=== PATIENT | female | born 2000 | race Caucasian/White ===

== ENCOUNTER → 2023-04-06 | Outpatient (CLI) | payer OTHER, SELFPAY ==
[2023-04-09 09:09] LABS: Chlamydia By Nucleic Acid AMP Negative (Negative); Gonococcus By Nucleic Acid AMP Negative (Negative)
[2023-04-12 21:50] LABS: HPV Reflexed? NOT INDICATED
== END | disposition home or self-care (01) ==
PROVIDERS: PCP Pediatrics; Referring Provider Obstetrics & Gynecology; Visit Provider Obstetrics & Gynecology
DX: Z34.90 Encounter for supervision of normal pregnancy, unspecified, unspecified trimester (principal)
CPT/HCPCS: 87086; 87088; 87491; 87591; 88175; G0145

== ENCOUNTER → 2023-05-04 | Outpatient (CLI) | payer OTHER, SELFPAY ==
[2023-05-04 13:44] LABS: Absolute Lymphocyte Count 1.09 X10^3/uL (0.83-4.51); Absolute Neutrophil Count 8.7 X10^3/uL (2.0-7.7); Basophil# 0.03 X10^3/uL; Basophil% 0.3 % (0-1); Eosinophil# 0.09 X10^3/uL; Eosinophils% 0.9 % (0-5); Hematocrit 38.2 % (37-47); Hemoglobin 12.5 g/dL (12.0-15.0); Lymphocyte # 1.09 X10^3/ul (0.83-4.51); Lymphocyte % 10.4 % (19-41); Mean Corp Hgb Conc 32.7 g/dL (32-36); Mean Corpuscular Hgb 28.6 pg (27.0-32.0); Mean Corpuscular Volume 87.4 fL (81-99); Mean Platelet Vol. 9.6 fl (6.2-12.0); Monocyte# 0.51 X10^3/uL; Monocyte% 4.9 % (0-10); NRBC Flagged by Analyzer 0 % (0-5); Neutrophil # 8.72 X10^3/uL (2.7-7.7); Neutrophil % 83.2 % (47-70); Platelet Count 332 K/mm3 (150-450); RBC Distribution Width CV 13.7 % (11.6-14.6); RBC Distribution Width SD 44.1 fl (35.1-43.9); Red Blood Count 4.37 M/mm3 (4.2-5.4); White Blood Count 10.5 K/mm3 (4.4-11.0)
[2023-05-04 14:05] LABS: Glucose Challenge Gest 1H 50g 83 mg/dL (70-140)
[2023-05-04 14:51] LABS: HIV - WCH Non-Reactive (Nonreactive); Hepatitis B Surface Antigen Non-Reactive (Nonreactive); Hepatitis C Antibody Non-Reactive (Nonreactive); Rubella IgG Non-Reactive (Nonreactive); Syphilis Antibodies Non-reactive
[2023-05-06 06:09] LABS: V-Zoster IgG (Immunity) < 135 index (Immune >165)
== END | disposition home or self-care (01) ==
LOC: LAB 12:38
PROVIDERS: PCP Pediatrics; Referring Provider Obstetrics & Gynecology; Visit Provider Obstetrics & Gynecology
DX: Z34.90 Encounter for supervision of normal pregnancy, unspecified, unspecified trimester (principal)
CPT/HCPCS: 36415; 82950; 85025; 86703; 86762; 86780; 86787; 86803; 86850; 86900; 86901; 87340

== ENCOUNTER → 2023-07-31 | Outpatient (CLI) | payer OTHER, SELFPAY ==
[2023-07-31 12:17] LABS: Absolute Lymphocyte Count 1.36 X10^3/uL (0.83-4.51); Basophil# 0.04 X10^3/uL; Basophil% 0.4 % (0-1); Eosinophil# 0.12 X10^3/uL; Eosinophils% 1.1 % (0-5); Hematocrit 35.3 % (37-47); Hemoglobin 11.6 g/dL (12.0-15.0); Lymphocyte # 1.36 X10^3/ul (0.83-4.51); Lymphocyte % 12.1 % (19-41); Mean Corp Hgb Conc 32.9 g/dL (32-36); Mean Corpuscular Hgb 29.1 pg (27.0-32.0); Mean Corpuscular Volume 88.5 fL (81-99); Mean Platelet Vol. 9.7 fl (6.2-12.0); Monocyte% 6.2 % (0-10); NRBC Flagged by Analyzer 0 % (0-5); Neutrophil # 8.96 X10^3/uL (2.7-7.7); Neutrophil % 79.7 % (47-70); Platelet Count 358 K/mm3 (150-450); RBC Distribution Width CV 13.7 % (11.6-14.6); RBC Distribution Width SD 44.1 fl (35.1-43.9); Red Blood Count 3.99 M/mm3 (4.2-5.4); White Blood Count 11.2 K/mm3 (4.4-11.0)
[2023-07-31 13:00] LABS: Glucose Challenge Gest 1H 50g 94 mg/dL (70-140)
[2023-07-31 19:40] LABS: Xtra Tube EP Lab EXTRA TUBE
[2023-07-31 19:42] LABS: Xtra Tube EP Lab EXTRA TUBE
== END | disposition home or self-care (01) ==
LOC: LAB 11:30
PROVIDERS: Referring Provider Registered Nurse; Visit Provider Registered Nurse
DX: O99.212 Obesity complicating pregnancy, second trimester (principal); Z13.1 Encounter for screening for diabetes mellitus; Z3A.22 22 weeks gestation of pregnancy
CPT/HCPCS: 36415; 82950; 85025

== ENCOUNTER → 2023-10-07 | Outpatient (CLI) | payer OTHER, SELFPAY ==
--- NOTE | 2023-10-07 13:47 | US_ITS ---
EXAM: US SECOND OR THIRD TRIMESTER , TRANSABDOMINAL CLINICAL INDICATION: growth TECHNIQUE: Transabdominal obstetrical ultrasound of the maternal pelvis and a second or third trimester with image documentation. COMPARISON: No relevant prior studies available. FINDINGS: FETUS: HEART RATE: 138 bpm PRESENTATION: Cephalic. PLACENTA: Grade 1, posterior. A No placenta previa. No abruption. AMNIOTIC FLUID: Unremarkable. 4 quadrant CLARICE 11.4 cm, the largest pocket 3.4 cm. ANATOMY: Full survey not performed. BIOMETRICS GESTATIONAL AGE: 34 weeks 5 days. HE: November 13, 2023. EFW: 2610 g +/- 391 g, 41st percentile. BPD: 8.5 cm, 34 weeks 2 days. HC: 31.1 cm, 34 weeks 5 days. AC: 31.1 cm, 35 weeks 0 days. FL: 6.9 cm, 35 weeks 4 days. MATERNAL: UTERUS: Unremarkable. No myometrial mass. CERVIX: Not seen. ADNEXA: Not seen. FREE FLUID: None. US/OB Limited With Biometrics IMPRESSION: Single live intrauterine . No acute abnormality. Electronically Signed: Linda Ward MD at 8:02 EDT ,
== END | disposition home or self-care (01) ==
LOC: US 13:46
PROVIDERS: Referring Provider Advanced Practice Midwife; Visit Provider Advanced Practice Midwife
DX: Z34.90 Encounter for supervision of normal pregnancy, unspecified, unspecified trimester (principal)
CPT/HCPCS: 76816

== ENCOUNTER → 2023-10-15 | Outpatient (CLI) | payer OTHER, SELFPAY | END | disposition home or self-care (01) | LOC: LABSPEC 15:29 | PROVIDERS: Referring Provider Registered Nurse; Visit Provider Registered Nurse | DX: Z34.00 Encounter for supervision of normal first pregnancy, unspecified trimester (principal) | CPT/HCPCS: 87077; 87081; 87186 ==

== ENCOUNTER 2023-11-16 04:10 | Inpatient (IN) | payer OTHER, SELFPAY ==
[2023-11-15 20:16] VITALS: RESP 16; TEMP 36.6
[2023-11-15 20:18] VITALS: BP 124/79; PULSE 80; O2SAT 98
[2023-11-15 20:24] VITALS: BMI 38.6
[2023-11-15] MEDS: DiphenhydrAMINE 25 MG Capsule 50 MG PO (22:58)
[2023-11-16] VITALS (44 sets, daily range): BP systolic 97–153; BP diastolic 53–92; PULSE 64–113; RESP 14–16; TEMP 35.8–37.9; O2SAT 89
[2023-11-16] MEDS: Lactated Ringers 1,000 ML 100 ML IV ×3 (00:31→09:14)
[2023-11-16] MEDS: Ondansetron 4 MG/2 ML Vial IV (00:31)
[2023-11-16] MEDS: Morphine 4 MG/ML Syringe 5 MG IV (01:06)
[2023-11-16 04:19] LABS: Absolute Neutrophil Count 11.7 X10^3/uL (2.0-7.7); Basophil# 0.03 X10^3/uL; Basophil% 0.2 % (0-1); Eosinophil# 0.02 X10^3/uL; Eosinophils% 0.1 % (0-5); Hematocrit 34.1 % (37-47); Lymphocyte % 8.8 % (19-41); Mean Corp Hgb Conc 32.3 g/dL (32-36); Mean Corpuscular Hgb 27.4 pg (27.0-32.0); Mean Corpuscular Volume 84.8 fL (81-99); Mean Platelet Vol. 10.3 fl (6.2-12.0); Monocyte# 0.67 X10^3/uL; Monocyte% 4.9 % (0-10); NRBC Flagged by Analyzer 0 % (0-5); Neutrophil # 11.71 X10^3/uL (2.7-7.7); Neutrophil % 85.6 % (47-70); Platelet Count 311 K/mm3 (150-450); RBC Distribution Width SD 42.8 fl (35.1-43.9); Red Blood Count 4.02 M/mm3 (4.2-5.4); White Blood Count 13.7 K/mm3 (4.4-11.0)
[2023-11-16 04:50] LABS: Syphilis Antibodies Non-reactive
[2023-11-16] MEDS: LACTATED RINGERS 500 ML 999 ML IV (09:21)
--- NOTE | 2023-11-16 09:43 | PN.OBGYN_ITS ---
Subjective Subjective coping through contractions, feeling extremely tired. Objective Data Objective Data Vital Signs: Vital Signs Temp Pulse Resp BP Pulse Ox 97.6 F L 72 16 121/74 H 89 11/16/23 09:28 11/16/23 09:38 11/16/23 09:28 11/16/23 09:38 11/16/23 09:33 Weight: 232 lb 3.2 oz Body Mass Index (BMI) 38.6 Intake & Output: Intake and Output for Last 24 Hours 11/14/23 11/15/23 11/16/23 23:59 23:59 23:59 Intake Total 871.67 / 871.67 Balance 871.67 / 871.67 Lab / Micro Data 11/16/23 00:25 Labs: Laboratory Results - last 24 hr 11/16/23 00:25: WBC 13.7 H, RBC 4.02 L, Hgb 11.0 L, Hct 34.1 L, MCV 84.8, MCH 27.4, MCHC 32.3, RDW Std Deviation 42.8, RDW Coeff of Mikayla 14.0, Plt Count 311, MPV 10.3, Immature Gran % (Auto) 0.400, Neut % (Auto) 85.6 H, Lymph % (Auto) 8.8 L, Harding % (Auto) 4.9, Eos % (Auto) 0.1, Baso % (Auto) 0.2, Absolute Neuts (auto) 11.7 H, Absolute Lymphs (auto) 1.20, Nucleated RBC % 0, Syphilis Total Ab Non- reactive, Blood Type A POSITIVE, Antibody Screen NEGATIVE Physical Exam Const alert and oriented x3 GI normal to inspection, nondistended, normoactive bowel sounds Manual OB Exam: estimated gestational size, presentation cephalic, dilated 4, effaced 90, station +1 and other membranes intact. Psych mental status grossly normal NST FHR Rate Baby A Baseline: 130 Variability:: Moderate Accelerations:: 15 x 15 Decelerations:: None NST Reactive:: Yes FHR Category:: Category I Assessment & Plan (1) Positive GBS test: COMMENT: recommend treating in labor. r/b reviewed, pt plans to decline. PLAN: afebrile, membranes intact. continued conversations of r/b/a of antibiotics. declines at this time. understands highly recommended if febrile, tachycardia or prolonged ROM >18 hours. (2) Active labor at term: PLAN: Plan -therapeutic epidural for prodromal labor, now in active labor. -recheck cervical exam within 4 hours of epidural, pitocin if no change vs AROM. -reassuring maternal and status.
[2023-11-16] MEDS: fentaNYL-bupivacaine (epidural) 100 ML BAG EPIDURAL ×2 (10:14→13:46)
[2023-11-16] MEDS: Oxytocin 15 Units/NS 250ml 15 UNITS/250 ML IV.SOLN 2 UNITS IV (10:15)
--- NOTE | 2023-11-16 13:01 | PCM.PN.OB ---
Subjective Subjective comfortable with epidural Objective Data Objective Data Vital Signs: Vital Signs Temp Pulse Resp BP Pulse Ox 97.9 F 71 16 106/63 89 11/16/23 12:27 11/16/23 12:50 11/16/23 12:34 11/16/23 12:50 11/16/23 09:33 Weight: 232 lb 3.2 oz Body Mass Index (BMI) 38.6 Intake & Output: Intake and Output for Last 24 Hours 11/14/23 11/15/23 11/16/23 23:59 23:59 23:59 Intake Total 874.84 / 874.84 Balance 874.84 / 874.84 Lab / Micro Data 11/16/23 00:25 Labs: Laboratory Results - last 24 hr 11/16/23 00:25: WBC 13.7 H, RBC 4.02 L, Hgb 11.0 L, Hct 34.1 L, MCV 84.8, MCH 27.4, MCHC 32.3, RDW Std Deviation 42.8, RDW Coeff of Mikayla 14.0, Plt Count 311, MPV 10.3, Immature Gran % (Auto) 0.400, Neut % (Auto) 85.6 H, Lymph % (Auto) 8.8 L, [place] % (Auto) 4.9, Eos % (Auto) 0.1, Baso % (Auto) 0.2, Absolute Neuts (auto) 11.7 H, Absolute Lymphs (auto) 1.20, Nucleated RBC % 0, Syphilis Total Ab Non-reactive, Blood Type A POSITIVE, Antibody Screen NEGATIVE Physical Exam Resp normal respiratory effort and normal air movement Manual OB Exam: dilated 5.5, effaced 100 and station +1 NST FHR Rate Baby A Baseline: 120 Variability:: Moderate Accelerations:: 15 x 15 Decelerations:: None NST Reactive:: Yes FHR Category:: Category I Uterine Activity:: q3-4 Assessment & Plan (1) Active labor at term: COMMENT: epidural in place. AROM clear fluid (2) Positive GBS test: COMMENT: recommend treating in labor. r/b reviewed, pt plans to decline. PLAN: Plan IUPC placed. pitocin per protocol. comfortable with epidural continue frequent position changes.
--- NOTE | 2023-11-16 18:33 | EX.PCM.OBRPT ---
Assessment & Plan (1) Active labor at term: COMMENT: epidural in place. AROM clear fluid (2) Positive GBS test: COMMENT: recommend treating in labor. r/b reviewed, pt plans to decline. (3) Obesity affecting : COMMENT: 1 TM GCT ordered. healthy weight gain recommended. 41% 11.4afi (4) Susceptible to varicella (non-immune), currently : (5) Supervision of normal first : COMMENT: , HE 11/08/23, [place] (6) : QUALIFIERS: Weeks of gestation: 40 weeks Qualified Code(s): Z3A.40 - 40 weeks gestation of COMMENT: discussed genetic & carrier testing - declined. nl anatomy Maternal Data Information HE Calculator Estimated Delivery Date Method Current WG Current Estimate 11/08/23 LMP (Certain) 41w 1d Vaginal Delivery Operative Information Date of Procedure: 11/16/23 Pre-Operative Diagnosis: see a/p diagnoses Post-Operative Diagnosis: same Surgery / Procedure Performed: Spontaneous Vaginal Delivery Type of Anesthesia: Epidural Special Medications: none Estimated Blood Loss: 200 Fluids Replaced: crystalloid Findings Description of Procedure: Patient began pushing and delivered the head in the SKYE presentation. The head was delivered atraumatically . The anterior and posterior shoulders delivered without complication followed by the rest of the infant and the was placed on the maternal abdomen. Delayed cord clamping was employed for approximately 60 seconds. Cord was clamped and cut and gentle traction was applied to the cord and the placenta delivered spontaneously immediately following it was noted to be intact but missing some mebranes possibly, and with three-vessel cord. manual exploration was performed and some membranes were removed, no additional placenta pieces removed. sufficient evaluation performed and no additional evaluation or curretage needed. ancef x 1 will be given. The perineum and vagina were inspected and noted to have a second degree perineal laceration which was repaired in the usual fashion with 3-0 vicryl rapide after betadine prepping. EBL was 200 cc. Patient and infant tolerated delivery well. Amniotic Fluid Description: Clear (initially then terminal mec) and Thick meconium Placental Delivery Description: Spontaneous Placenta Disposition: [facility] Cord Vessel Description: 3 Vessels Cord Entanglement: None Delayed Cord Clamping: Yes Post Vaginal Delivery Medications Given After Delivery: IV Pitocin Episiotomy Description: None Complication Complications: None Procedures Urinary/Genital [id number]: [id number] Vaginal Delivery [facility] pkg
--- NOTE | 2023-11-16 18:36 | DCINST_ITS ---
Discharge Instructions Diet Discharge Diet: No restrictions Activity Discharge Activity: Return to Normal Activity, May Not Drive (while taking narcotic pain medications.) and May Shower May resume sexual activity in: 4-6 weeks Dressing / Incision Call your doctor if your incision/area has: Continuous Slow Oozing, Sudden Increased Bleeding, Increased Pain/ Swelling, Increased Redness and Foul Smelling Discharge Follow Up Care Please Follow Up With: Daylin Wynn MD When: Call [phone] to make an appointment with your doctor in 6 weeks. If you had elevated blood pressure or 4th degree laceration, you will need to be seen in 2 weeks. Test Results: Test results from this visit will be discussed in further detail at your follow- up appointment, if applicable. Discharge Plan Admission Admit Date/Time: 11/16/23 04:10 Attending Provider: Daylin Wynn Primary Care Provider: Care Physician,Juana Primary Discharge Orders/Prescriptions Prescriptions: No Action PNV-DHA 27 mg iron-1 mg -300 mg capsule PO 1XD Referrals / Follow Up: Care Physician,No Primary [Primary Care Provider] - Disposition Disposition (needs filled in before D/C Order can be placed): Home, Self Care
[2023-11-16] MEDS: Cefazolin 2 GM in 0.9% Normal Saline (100mL Bag) 100 ML IV (19:02)
[2023-11-16] MEDS: 0.9% Saline Lock 10 ML Syringe IV (20:47)
[2023-11-17] VITALS (11 sets, daily range): BP systolic 111–141; BP diastolic 59–80; PULSE 73–140; RESP 16–18; TEMP 36.2–37.6; O2SAT 97–99
[2023-11-17] MEDS: Acetaminophen 500 MG Tablet 1000 MG PO ×4 (00:05→21:27)
[2023-11-17] MEDS: Naproxen 500 MG Tablet PO ×3 (01:27→18:58)
[2023-11-17] MEDS: Senna/Docusate Sodium 1 Tablet PO ×2 (01:41→21:27)
--- NOTE | 2023-11-17 09:44 | PCM.PN.OB ---
Subjective Subjective Patient doing well without complaints. Tolerating PO. Ambulating and voiding without difficulty. Feeding well. Denies chest pain, shortness of breath, calf pain/swelling, fevers, chills, lightheadedness. Objective Data Objective Data Vital Signs: Vital Signs Temp Pulse Resp BP Pulse Ox O2 Del Method 98.7 F 140 H 16 113/59 L 97 Room Air 11/17/23 09:01 11/17/23 09:01 11/17/23 08:46 11/17/23 08:46 11/17/23 05:27 11/17/23 05:27 Oxygen Delivery Method Room Air Weight: 232 lb 3.2 oz Body Mass Index (BMI) 38.6 Intake & Output: Intake and Output for Last 24 Hours 11/15/23 11/16/23 11/17/23 23:59 23:59 23:59 Intake Total 3731.67 / 3731.67 Output Total 200 / 200 400 / 400 Balance 3531.67 / 3531.67 -400 / -400 Lab / Micro Data 11/16/23 00:25 Physical Exam Const alert and oriented x3 HEENT normocephalic Eyes PERRL Neck full ROM Resp normal respiratory effort GI soft to palpation GI Narrative: FF below U Assessment & Plan (1) Spontaneous vaginal delivery: COMMENT: 11/16/23 [facility] [place] (2) Susceptible to varicella (non-immune), currently : COMMENT: enc to vaccinate after delivery PLAN: Plan s/p PPD # 1 1. routine post delivery care 2. breast feeding- support given 3. rh positive 4. rubella immune
[2023-11-18 02:51] VITALS: BP 126/70; PULSE 75
[2023-11-18 02:58] VITALS: BP 126/70; PULSE 75; RESP 16; TEMP 36.7
[2023-11-18 07:50] VITALS: BP 111/79; PULSE 66
[2023-11-18 07:51] VITALS: BP 111/79; PULSE 66; RESP 16; TEMP 36.2
[2023-11-18] MEDS: Acetaminophen 500 MG Tablet 1000 MG PO (07:58)
[2023-11-18] MEDS: Senna/Docusate Sodium 1 Tablet PO (09:42)
--- NOTE | 2023-12-04 09:33 | PCM.HP.OB ---
HPI - General General Date of Admission: 11/16/23 Date of Service: 11/16/23 Chief Complaint: contractions HPI Narrative JADIEL NAVA, is a 23 F who presents with increased contraction intensity and frequency since thursday morning. denies LOF/VB good fm. PFSH PFSH Medical History Anesthesia complication Fracture of proximal phalanx of digit of right hand Home Medications multivitamin no.47-iron fum 27 mg-folate no.1 1 mg-dha 300 mg capsule (PNV-DHA) cap PO 1XD 03/31/23 [History Last Taken 11/14/23] Allergy/AdvReac Type Severity Reaction Status Date / Time No Known Allergies Allergy Verified 11/16/23 04:18 Surgical History [place] teeth extracted Social History adopted: No household members: spouse current occupational status: unemployed current occupational exposures/hazards: No pets and animals: Yes pets and animals: dog(s) [facility] [place] [facility] out of state: Yes out of country: Yes sexually active: Yes Smoking Status: Never smoker alcohol intake: current alcohol intake frequency: holidays/special occasions only details: Not while substance use type: does not use well-balanced diet: daily or most days caffeine: No eating out: 1-3 times/week during the past year weight has: increased > 10 lbs what type of physical activity do you participate in: none debora/rastafari: Evangelical seatbelt use: always do you feel safe at home: Yes additional social history: [place] brink History 1 Elective abortions Hx Para 0 Spontaneous abortions Hx # Term Pregnancies 1 Ectopic pregnancies Hx # Pregnancies Multiple births # of living children 1 Past Pregnancies Del. Date Name GA/Weeks Outcome Route Bth Weight Gen Labor Lgth Anesthesia Del Locatn Provider FOB 11/16/23 41 live - full term epidural [facility] [place] Delivery Date: 11/16/23 Last Updated by: Estela Obregon see problem list for complications, and SM retained membranes, IOL postdates 41. ROS Cardiovascular Cardiovascular: Denies abdominal pain, chest pain, diaphoresis or dyspnea Respiratory/Chest Respiratory/Chest: Denies change in mental status, chest congestion, chest tightness, cough, shortness of breath at rest, shortness of breath with exertion, breast mass, breast pain, breast skin changes, breast swelling, change in breast shape or nipple discharge Genitourinary Genitourinary: Reports change in urinary stream Musculoskeletal Musculoskeletal: Reports none Integumentary Integumentary: Reports none Neurologic Neurologic: Reports none Psychiatric Psychiatric: Reports none Endocrine Endocrinology: Reports none Hematologic/Lymphatic Hematologic/Lymphatic: Reports none Allergic/Immunologic Allergic/Immunologic: Reports none Vital Signs Vital Signs Vital Signs: Weight Weight: 232 lb 3.2 oz Body Mass Index (BMI) 38.6 Physical Exam Const alert, oriented x3 and no apparent distress General Appearance: cooperative, comfortable and well kempt Orientation / Consciousness: awake and oriented to person Exam Limitations: no limitations HEENT normocephalic Neck full ROM Chest inspection of chest normal Resp normal respiratory effort, normal air movement and no retractions Effort and Inspection: able to speak in complete sentences and symmetric chest movement Cardio regular rate Peripheral Pulses: pulses 2+ throughout GI normal to inspection, nondistended, normoactive bowel sounds Inspection: gravid no CVA tenderness and appearance of the vagina normal External Female Exam: normal appearance of the urethra; Negative for external lesion OB / External & Speculum: external exam normal Manual OB Exam: estimated gestational size appropriate and presentation cephalic Uterus Palpation: Negative for uterus tender Extremity normal to inspection Skin no rashes or lesions noted Neuro deep tendon reflexes 2+ bilaterally and gait normal Motor Exam: strength 5/5 throughout and clonus absent Psych Activity / Motor Behavior: appropriate eye contact Speech: normal speech Labs Labs Labs: Blood Type A POSITIVE Antibody Screen NEGATIVE Hct 34.1 % (37-47) L Hgb 11.0 g/dL (12.0-15.0) L Obstetrics Ultrasound Syphilis Total Ab Non-reactive VZV IgG Antibody < 135 index (Immune >165) L Rubella IgG Antibody Non-Reactive (Nonreactive) Hep Bs Antigen Non-Reactive (Nonreactive) Hepatitis C Antibody Non-Reactive (Nonreactive) Chlamydia DNA (KERVIN) Negative (Negative) N.gonorrhoeae DNA (KERVIN) Negative (Negative) HIV 1&2 Antibody Non-Reactive (Nonreactive) Glucose 1 Hr 50 gm 94 mg/dL (70-140) Rhogam given: No Assessment & Plan (1) : QUALIFIERS: Weeks of gestation: 40 weeks Qualified Code(s): Z3A.40 - 40 weeks gestation of COMMENT: discussed genetic & carrier testing - declined. nl anatomy (2) Supervision of normal first : COMMENT: , HE 11/08/23, [place] (3) Spontaneous onset of labor: PLAN: Plan Patient presents IAL, plan expectant management for , pitocin/AROM PRN if needed. Pain management: plans epidural. GBS positive plan IV PCN, reviewed r/b/a and pt declines treatment. Management of any complications: none I have reviewed the [facility] and made any clinically relevant updates. Dr. Wynn updated on admission, exam and poc.
== END 2023-11-18 12:20 | disposition home or self-care (01) | DRG 807 ==
LOC: WP 10:14
PROVIDERS: Advanced Practice Midwife; Admitting Provider Obstetrics & Gynecology; Referring Provider Obstetrics & Gynecology; Visit Provider Obstetrics & Gynecology
DX: O99.824 Streptococcus B carrier state complicating childbirth (principal); Z37.0 Single live birth; O77.0 Labor and delivery complicated by meconium in amniotic fluid; O99.214 Obesity complicating childbirth; O70.1 Second degree perineal laceration during delivery; Z3A.40 40 weeks gestation of pregnancy
CPT/HCPCS: 59025; 59050; 85025; 86780; 86850; 86900; 86901; 99221; J7120; A4216; G0378; J2405

== ENCOUNTER 2024-07-20 20:07 | Emergency (ER) | payer OTHER, SELFPAY ==
[2024-07-20] VITALS (7 sets, daily range): BP systolic 104–142; BP diastolic 69–87; PULSE 133–141; RESP 16–24; TEMP 36.4–37.6; O2SAT 97–98; BMI 36.6
--- NOTE | 2024-07-20 20:43 | EDS_ITS ---
HPI HPI - URI History of Present Illness Chief Complaint: Cold Sx Informant: patient and parent Onset/Context/Timing Onset: Today and Yesterday Context: Gradual Onset Timing: Continuous Current Severity: Mild Maximum Severity: Mild Associated Symptoms Associated Symptoms: Positive for Nasal Congestion and Nonproductive cough Narrative Narrative: 24-year-old female no seen past medical history. URI symptoms started yesterday. Today wheezing with nonproductive cough fever as high as 101.6 at home today. No vomiting or diarrhea. Prior similar symptoms: Yes Recent Illness/Hospitalization: No ROS ROS ED ROS Narrative Fever. Cough. Wheezing. Constitutional Constitutional ED: Reports fever(s); Denies chills Eyes Eyes: Denies blurry vision ENT ENT ED: Denies ear pain Cardiovascular Cardiovascular: Denies chest pain Respiratory/Chest Respiratory/Chest: Reports cough Gastrointestinal Gastrointestinal: Denies abdominal pain, constipation, diarrhea, melena, nausea or vomiting Genitourinary Genitourinary ED: Denies dysuria or hematuria Musculoskeletal Musculoskeletal: Denies arthralgias Integumentary Denies abscess Neurologic Neurologic: Denies headache(s) Psychiatric Psychiatric: Denies anxiety Endocrine Endocrinology: Denies cold intolerance Hematologic/Lymphatic Hematologic/Lymphatic: Denies easy bleeding Allergic/Immunologic Allergic/Immunologic ED: Denies mouth swelling PFSH PFSH Medical History Anesthesia complication Fracture of proximal phalanx of digit of right hand Home Medications ?Medication ?Instructions ?Recorded ?Last Taken ?Type prednisone 20 mg tablet 40 mg (2 x 20 mg) PO DAILY 7 days 07/20/24 Unknown Rx #14 tabs Allergy/AdvReac Type Severity Reaction Status Date / Time No Known Allergies Allergy Verified 07/20/24 20:09 Surgical History [place] teeth extracted Social History adopted: No household members: spouse number of children: 1 current occupational status: unemployed current occupational exposures/hazards: No pets and animals: Yes pets and animals: dog(s) [place] [facility] [facility] [place] out of state: Yes out of country: Yes sexually active: Yes Smoking Status: Never smoker alcohol intake: current alcohol intake frequency: holidays/special occasions only details: Not while substance use type: does not use well-balanced diet: daily or most days caffeine: No eating out: 1-3 times/week during the past year weight has: increased > 10 lbs what type of physical activity do you participate in: none debora/jain: Jainism seatbelt use: always do you feel safe at home: Yes 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 Vital signs are stable she is tachycardic. Initial temperature 97.6 oral temperature and eyes in the room was 99.7. I took it myself. H EENT exam pupils round reactive light. Moist mucous membranes. Posterior pharynx unremarkable. No exudate. No trouble swallowing. No stridor. Clear rhinorrhea. Neck nontender no meningismus. No lymphadenopathy. Lungs dry cough. Expiratory wheezing. Equal symmetrical. Heart tachycardic 135 no murmur. Chest wall ribs nontender. Abdomen soft nontender. Moving all 4 extremities. Nontender no edema no cords. Back nontender. Neurologically she is awake alert no focal motor deficits. Const Vital Signs: 07/20/24 20:08 07/20/24 20:14 07/20/24 20:16 Temperature 97.6 F L 98.4 F Temperature Source Temporal Oral Pulse Rate 140 H 137 H Respiratory Rate 17 18 Respiratory Effort Normal Respiratory Pattern Normal Blood Pressure 133/87 H 142/75 H Blood Pressure Mean 102 97 Pulse Ox 97 98 Oxygen Delivery Method Room Air Room Air 07/20/24 20:50 07/20/24 21:00 07/20/24 22:07 Temperature 99.7 F H Temperature Source Oral Pulse Rate 141 H 134 H Respiratory Rate 18 24 H Respiratory Effort Respiratory Pattern Normal Blood Pressure 104/70 Blood Pressure Mean 81 Pulse Ox 97 Oxygen Delivery Method Room Air 07/20/24 22:24 Temperature Temperature Source Pulse Rate 141 H Respiratory Rate Respiratory Effort Respiratory Pattern Blood Pressure Blood Pressure Mean Pulse Ox Oxygen Delivery Method Positive well nourished and well developed; Negative for obese, cachectic or contractures General Appearance ED: well developed and NAD; Negative for cachectic, contr actures, cyanotic, diaphoretic or pallor Nutritional Appearance: Negative for cachectic or obese HEENT Reports moist mucous membranes normocephalic Throat: posterior oropharynx normal Eyes PERRL and EOMs intact bilaterally Neck no lymphadenopathy, supple, no meningeal signs and no JVD Resp normal respiratory effort and No clear to auscultation bilaterally Resp Narrative: Bilateral expiratory wheezes. Dry cough. Auscultation: wheezes Cardio S1 normal heart sound, S2 normal heart sound and no murmurs Rate: tachycardic GI non-tender, non-distended and no masses Palpation: soft; Negative for tender or guarding Back/Spine no CVA tenderness and normal ROM General Back: Negative for CVA tenderness Cervical Spine: Negative for cervical spine tenderness Thoracic Spine / Upper Back: Negative for thoracic spinal tenderness Lumbar Spine / Lower Back: Negative for lumbar spinal tenderness Sacrum: Negative for tenderness Extremity normal to inspection and full ROM General Extremety ED: Negative for cyanosis or tenderness General Extremity: Negative for cyanosis Neuro oriented x3 and CN's II-XII intact bilaterally Sensorium / Orientation: alert, oriented to person, oriented to place and oriented to time; Negative for orientation impaired or lethargic Motor Exam: strength 5/5 throughout; Negative for general weakness or strength abnormal Psych mental status grossly normal Attitude: No agitated Mood & Affect: Negative for depressed, anxious or tearful Skin General Skin Exam: Negative for jaundice or pallor Lesions: no lesions Rashes: no rashes Trauma: Negative for abrasion, laceration or puncture MDM MDM MDM Narrative Medical decision making narrative: 24-year-old female suspect viral URI. We talked about COVID and flu and RSV testing we deferred. Chest x-ray will be obtained to rule out pneumonia. She is wheezing. She will be given prednisone orally and a DuoNeb aerosol. Repeat exam patient doing well. Wheezing is resolved with the aerosol treatment and the prednisone. I do think she is mildly dehydrated and has a low-grade fever of 99.7. She be given a gram of Tylenol and a liter normal saline. And she will be discharged home. She and I and her mom discussed her normal chest x-ray results and diagnosis and outpatient treatment plan. They are comfortable with the plan. History & Record Review Discussion w/independent historian: Patient Radiography Chest X-Ray - ED: 2 View, Read by ED Physician, Read by Radiologist, Normal, Heart, Lungs, Mediastinum, Bony Structures and No Acute Disease Diagnostic Testing: Clinical Impression(s) from Imaging Studies Chest X-Ray 07/20/24 20:44 IMPRESSION: No radiographic evidence of acute cardiopulmonary disease. Electronically Signed: Lito Gregorio MD at 21:27 EST , Chest x-ray, 2 views, AP and lateral, interpreted by myself and the radiologist shows no acute abnormality. No pneumonia. No effusions. Normal cardiac silhouette. Discharge Plan Triage Chief Complaint: Cold Sx ED Provider: Anjel Veras Dx/Rx/DC Orders Clinical Impression: Viral URI, Bilateral wheezing Instructions: ED URI, Viral W/ Wheezing (Adult) Prescriptions: New prednisone 20 mg tablet 40 mg PO DAILY 7 Days Qty: 14 0RF Primary Care Provider: Care Physician,No Primary Referrals: Rishi Rolle MD [Med Staff - Stockroom Supervisor] - 3-5 Days if not improving Care Physician,No Primary [Primary Care Provider] - Activity Restrictions/Additional Instructions: Plenty of fluids and rest. You are mildly dehydrated. Motrin and Tylenol for fever. Prednisone daily for the inflammation in your lungs that will help decrease and stop the wheezing. Follow-up with your doctor or the doctor I referred you to if not improving. Return if worse. Print Language: Albanian Disposition Disposition: Home, Self Care
[2024-07-20] MEDS: predniSONE 20 MG Tablet 40 MG PO (20:44)
--- NOTE | 2024-07-20 20:44 | RAD_ITS ---
INDICATION: cough EXAMINATION/TECHNIQUE: X-RAY - XR Chest 2 Views COMPARISON: None. FINDINGS: LINES/DEVICES: None. LUNGS: No consolidation, edema or effusion. No pneumothorax. MEDIASTINUM AND CARDIOVASCULAR STRUCTURES: Cardiac silhouette not enlarged. Central airways and mediastinal contour are unremarkable. BONES AND SOFT TISSUES: Unremarkable. RAD/Chest PA and Lateral IMPRESSION: No radiographic evidence of acute cardiopulmonary disease. Electronically Signed: Lito Gregorio MD at 21:27 EST
[2024-07-20] MEDS: Ipratropium/Albuterol Sulfate 3 ML AMPUL.NEB INHALATION (20:45)
[2024-07-20] MEDS: 0.9% Normal Saline (1000mL) 1,000 ML 999 ML IV (22:28)
[2024-07-20] MEDS: Acetaminophen 500 MG Tablet 1000 MG PO (22:28)
== END 2024-07-21 00:01 | disposition home or self-care (01) ==
PROVIDERS: Emergency Provider Emergency Medicine; Visit Provider Emergency Medicine
DX: J06.9 Acute upper respiratory infection, unspecified (principal); R06.2 Wheezing; E86.0 Dehydration
CPT/HCPCS: 71046; 94640; 96360; 99282; A4216